=== PATIENT | male | born 1955 | race Caucasian/White ===

== ENCOUNTER 2019-04-27 23:44 | Emergency (ER) | payer OTHER ==
--- NOTE | 2019-04-27 23:58 | ED ---
Complaint/Male - History of Current Complaint Chief Complaint: EDUrogenitalProblems Time Seen by Provider: 04/27/19 23:57 - Allergies/Home Medications Allergies/Adverse Reactions: Allergies Allergy/AdvReac Type Severity Reaction Status Date / Time Penicillins Allergy Shortness Verified 04/27/19 23:56 of Breath PMH/Surg Hx/FS Hx/Imm Hx Infectious Disease History: No Infectious Disease History: Reports: Traveled Outside the [place] in Last 30 Days Physical Exam Vital Signs On Initial Exam: Initial Vitals Temp Pulse Resp BP Pulse Ox 97.9 F 74 16 136/92 97 04/27/19 23:50 04/27/19 23:50 04/27/19 23:50 04/27/19 23:50 04/27/19 23:50 Diagnostics - Vital Signs Vital Signs Temp Pulse Resp BP Pulse Ox 04/27/19 23:50 97.9 F 74 16 136/92 97 - Laboratory Lab Statement: Any lab studies that have been ordered have been reviewed, and results considered in the medical decision making process.
--- NOTE | 2019-04-28 00:20 | ED ---
GI/ HPI - HPI Summary HPI Summary: 63 yo male presents with urinary retention. He tells me that he has a history of urinary incontinence and urinary retention over the last 2 years. He is currently undergoing clinical trials in Botox therapy for urinary incontinence and has had good results except this time and one other time. About 10 months ago he had a botox treatment done and had urinary retention for around a week that required self cathing before his urine stream was normal. Most recently he had a botox therapy 6 weeks ago and has had constant urinary retention since that time. He has seen his urologist for this and is being closely followed. He has been self cathing daily. He is visiting here from out of town this weekend and forgot to bring his catheters with him. He is here requesting a catheter. - History of Current Complaint Chief Complaint: EDUrogenitalProblems Time Seen by Provider: 04/27/19 23:57 Stated Complaint: BLADDER SHUT DOWN AFTER BOTOX PER PT Hx Obtained From: Patient Severity: Severe Current Severity: Severe Pain Intensity: 9 - Allergy/Home Medications Allergies/Adverse Reactions: Allergies Allergy/AdvReac Type Severity Reaction Status Date / Time Penicillins Allergy Shortness Verified 04/27/19 23:56 of Breath PMH/Surg Hx/FS Hx/Imm Hx Endocrine/Hematology History: Denies: Hx Blood Disorders, Hx Diabetes Cardiovascular History: Denies: Hx Cardiac Arrest Respiratory History: Denies: Hx Asthma, Hx Chronic Obstructive Pulmonary Disease (COPD) Neurological History: Denies: Hx CVA, Hx Migraine Infectious Disease History: No Infectious Disease History: Reports: Traveled Outside the [place] in Last 30 Days - Social History Lives: With Family Alcohol Use: Daily Substance Use Type: Reports: None Smoking Status (MU): Never Smoked Tobacco Review of Systems Constitutional: Negative Cardiovascular: Negative Respiratory: Negative Gastrointestinal: Negative Positive: other - retention Musculoskeletal: Negative Skin: Negative Neurological: Negative Psychological: Normal All Other Systems Reviewed And Are Negative: No Physical Exam - Summary Physical Exam Summary: GENERAL: NAD. WDWN. No pain distress. SKIN: No rashes, sores, or open wounds. NECK: Supple. Nontender. No lymphadenopathy. CHEST: CTAB. No r/r/w. No accessory muscle use. Breathing comfortably and in no distress. CV: RRR. Without m/r/g. Pulses intact. Brisk cap refill. ABDOMEN: Mild TTP overlying bladder. Soft. No distention or guarding. No CVA tenderness. Bowel sounds present NEURO: Alert. PSYCH: Age appropriate behavior. Triage Information Reviewed: Yes Vital Signs On Initial Exam: Initial Vitals Temp Pulse Resp BP Pulse Ox 97.9 F 74 16 136/92 97 04/27/19 23:50 04/27/19 23:50 04/27/19 23:50 04/27/19 23:50 04/27/19 23:50 Vital Signs Reviewed: Yes Diagnostics - Vital Signs Vital Signs Temp Pulse Resp BP Pulse Ox 04/27/19 23:50 97.9 F 74 16 136/92 97 - Laboratory Lab Statement: Any lab studies that have been ordered have been reviewed, and results considered in the medical decision making process. GIGU Course/Dx - Course Course Of Treatment: Inital bladder scan showed ~450ccs. Straight cath performed by nursing and ~850ccs of urine was excreted. Pt has complete resolution of his symptoms and felt much better. A bravo was placed for pt to get through the weekend and he will resume his straight caths on Tuesday when he returns home and f/u with Urology. - Diagnoses Provider Diagnoses: Urinary retention Discharge ED - Sign-Out/Discharge Documenting (check all that apply): Patient Departure Patient Received Moderate/Deep Sedation with Procedure: No - Discharge Plan Condition: Stable Disposition: HOME Patient Education Materials: Urinary Retention in Men (ED) Referrals: No Primary Care Phys,NOPCP [Primary Care Provider] - Additional Instructions: If you develop a fever, shortness of breath, chest pain, new or worsening symptoms - please call your PCP or go to the ED immediately. Your blood pressure was high at todays visit. Please see your primary provider within 4 weeks for recheck and re-evaluation. - Billing Disposition and Condition Condition: STABLE Disposition: Home
[2019-04-28 00:56] VITALS: BP 124/76
== END 2019-04-28 00:35 | disposition home or self-care (01) ==
LOC: ED 23:44
DX: R33.9 Retention of urine, unspecified (principal); Z88.0 Allergy status to penicillin
CPT/HCPCS: 99282